=== PATIENT | female | born 1970 | race Asian ===

== ENCOUNTER 2020-11-28 07:33 | Day surgery (SDC) | payer OTHER, SELFPAY ==
[~2020-11-28] VITALS: Ht 167.6 cm; Wt 503.5 kg
[2020-11-28] MEDS ORDERED: MIDAZOLAM 5 MG/5 ML VIAL ONE (09:17)
[2020-11-28] MEDS ORDERED: fentaNYL citrate 0.05 MG/ML VIAL ONE (09:17)
[2020-11-28] MEDS ORDERED: diphenhydrAMINE 50 MG/ML VIAL ONE (09:18)
[2020-11-28] MEDS ORDERED: fentaNYL citrate 0.05 MG/ML VIAL IVP ONE (10:40)
[2020-11-28] MEDS ORDERED: MIDAZOLAM 2 MG/2 ML VIAL IVP ONE (10:40)
== END 2020-11-28 10:52 | disposition home or self-care (01) ==
LOC: MMU 07:33 → MDS 07:33
PROVIDERS: ATTEND Internal Medicine Gastroenterology
DX: R10.9 Unspecified abdominal pain (principal); K27.9 Peptic ulcer, site unspecified, unspecified as acute or chronic, without hemorrhage or perforation; E03.9 Hypothyroidism, unspecified; Z79.899 Other long term (current) drug therapy; Z20.828 Contact with and (suspected) exposure to other viral communicable diseases
CPT/HCPCS: 43239; J1200; J2250; J3010; J7030; U0003; 88305; 88312; 88313; 88342

== ENCOUNTER 2022-03-19 07:12 | Day surgery (SDC) | payer OTHER ==
[~2022-03-19] VITALS: Ht 167.6 cm; Wt 48.5 kg
[2022-03-19] MEDS ORDERED: diphenhydrAMINE 50 MG/ML VIAL ONE (08:33)
[2022-03-19] MEDS ORDERED: MIDAZOLAM 5 MG/5 ML VIAL ONE (08:34)
[2022-03-19] MEDS ORDERED: fentaNYL citrate 0.05 MG/ML VIAL ONE ×2 (08:34→08:36)
[2022-03-19] MEDS ORDERED: MIDAZOLAM 5 MG/5 ML VIAL IV ONE (12:55)
[2022-03-19] MEDS ORDERED: fentaNYL citrate 0.05 MG/ML VIAL IVP ONE (12:55)
== END 2022-03-19 10:35 | disposition home or self-care (01) ==
LOC: MDS 07:12 → MMU 07:12 → MDS 10:35
PROVIDERS: ATTEND Internal Medicine Gastroenterology
DX: K21.9 Gastro-esophageal reflux disease without esophagitis (principal); E03.9 Hypothyroidism, unspecified; Z79.899 Other long term (current) drug therapy; Z20.822 Contact with and (suspected) exposure to COVID-19
CPT/HCPCS: 43239; 81025; 87426; J2250; J3010; 88305; 88312; 88313; 88342; J1200